=== PATIENT | female | born 1955 | race Two or more races ===

== ENCOUNTER 2024-12-01 19:22 | Inpatient (IN) | payer MEDICARE ==
[~2024-12-01] VITALS: Ht 147.3 cm; Wt 62.0 kg
--- NOTE | 2024-12-01 19:56 | ED.PDOC ---
General HPI Comments 69y F who presents to the ED for chief complaint of flank pain - pt states she was in [place] for the last four months and states yesterday, she went to the ED in [place] for evaluation of abdominal and R sided flank pain - pt states she has been having abdominal pain radiating to the R flank for the past 2 weeks, worse in the past 4x days, - pt states the pain is constant, rating the pain 10/10, with no noted exacerbating or relieving factors - pt states she was told she has a very large kidney stone in the R flank and would require surgery however the pt was otherwise discharged with antibiotics and pain medications because she said she can not afford being hospitalized in [place]. - pt states she has been having associated symptoms of UTI including dysuria - Pt otherwise has stable vitals including temp of 98.7 F, heart rate 67, rr 18 and BP of 124/61 and 02 sat of 97% on room air Past medical history: denies Past surgical history: c-sections medications: unknown allergies: denies social history: denies tobacco use, denies ETOH use, denies drug use HPI: Poor Historian. During my physical exam patient has absolutely no pain in the flank area or in the abdomen area. They said her pain is only at nighttime and then they said she had pain medications earlier she is in no acute distress. Patient is here because she could not afford staying in [place] for lithotripsy so she decided to come here today instead. She was prescribed pain medications and antibiotics she said. She said she has been taking it since yesterday. REVIEW OF SYSTEMS: CONSTITUTIONAL: Denies acute: fever, diaphoresis, chills, generalized weakness. HEAD: Denies acute: headache, photophobia Eyes: Denies acute: Double vision, vision loss, eye pain, eye discharge. EARS: Denies acute: tinnitus, hearing loss, ear discharge, ear pain, THROAT: Denies acute: sore throat, swelling, difficulty swallowing , pain with swallowing, change in voice. NECK: Denies acute: neck pain, neck swelling, stiff neck. HEART: Denies acute : chest pain, palpitations, LUNGS: Denies acute: SOB, wheezing, cough, hemoptysis ABDOMEN: Denies acute: Nausea, Vomiting, diarrhea, melena , hematemesis, hematochezia SKIN: Denies acute: rash, redness, lesions, itchiness. EXTREMITIES: Denies acute: calf pain, numbness, tingling, weakness, denies pain in extremity. Denies acute: Low back pain. Neuro: Denies acute: focal neurological deficit, motor or sensory focal neurological deficit, tremors, seizure like activity, confusion, dizziness, change in mental status, loss of bowel or bladder function, cauda equina like symptoms. : Denies acute: hematuria PSYCH: Denies acute: hallucination, suicidal ideation, homicidal ideation. FEMALE: Denies acute: abnormal vaginal bleeding, foul odor, unusual discharge. PHYSICAL EXAM: General: ---no-----acute distress, awake and alert. Head: normocephalic, atraumatic. Neck: supple, trachea is midline, no swelling. Throat: Normal phonation. Eyes:, no erythema, no purulent discharge, no proptosis, no icterus. Heart: regular rate, regular rhythm, no significant murmur appreciated. Lungs: no apparent respiratory distress, Able to speak in full sentences. No wheezing, no rhonchi, no crackles. No stridors Clear to auscultation bilaterally. Abdomen: non tender to palpation, non distended, soft, no guarding, no rebound, + bowel sounds. Neuro: Awake, Alert, oriented to name, self, situation, follows commands GCS=15. Speech is normal. Skin: no petechia, no purpura, no cyanosis, non-pale, not jaundice. Lower extremities: --no - Pitting edema no deformity, no focal swelling, no calf TTP. Makes eye contact. moves all four extremities. Face: no apparent facial droop. No CVA tenderness to percussion bilaterally. Ambulating in the ED independently. ED COURSE: DISCLAIMER: This medical document was created using an electronic medical record system with voice recognition software and computerized dictation system. Although this document has been carefully reviewed, there might still be some phonetic and typographical errors. Occasional wrong-word or "sound-alike" substitutions may have occurred due to the inherent limitations of voice recognition software. These areas are purely typographical due to imperfections of the software programs and do not reflect any compromise in the patient's medical care. Please read the chart carefully and recognize, using context, where these substitutions have occurred. Chief Complaint: Flank Pain Time Seen by MD: 19:47 Reviewed notes: Medications, Allergies Allergies: Coded Allergies: NO KNOWN ALLERGIES (Unverified , 12/01/24) Information Source: Patient Mode of Arrival: Ambulatory Was a procedure done? Was a procedure done?: No Differential Diagnosis Kidney stone (Female): Other (Flank Pain;DDX include Nephrolethiasis, obstructive uropathy, kidney cancer, renal infarct, intraabdominal neoplasm, lower lobe pneumonia, retroperitoneal hemorrhage, pancreatitis, aneurysm, dissection, musculoskeletal, rib contusion/trauma, hematoma, PYLONEPHRITIS, muscle strain, spinal disease. ) X-Ray, Labs, Meds, VS Vital Signs Date Time Temp Pulse Resp B/P (MAP) Pulse Ox O2 Delivery O2 Flow Rate FiO2 12/02/24 04:52 98.5 67 18 141/64 (89) 99 98.5 12/01/24 19:23 98.7 67 18 124/61 97 98.7 Lab Test 12/01/24 20:57 12/01/24 20:40 12/01/24 19:52 Range/Units Urine Color Colorless Yellow Urine Clarity Clear Clear Urine pH 5.5 5.0-9.0 Urine Specific [place] 1.006 1.001-1.035 Urine Protein Negative Negative Urine Ketones Negative Negative Urine Blood Negative Negative /uL Urine Nitrite Negative Negative Urine Bilirubin Negative Negative Urine Urobilinogen Normal Negative mg/dL Urine Leukocyte Esterase Trace Negative /uL Urine RBC None seen 0 - 4 /hpf Urine Microscopic WBC 2 0-5 /HPF Urine Squamous Epithelial Cells Few <5 /hpf Urine Bacteria None seen None Seen /hpf Urine Glucose Normal Normal mg/dL Troponin I High Sensitivity < 3 L < 3 L </=34 ng/L White Blood Count 8.5 4.4-10.8 10^3/uL Red Blood Count 4.33 4.0-5.20 10^6/uL Hemoglobin 13.5 12.2-16.2 g/dL Hematocrit 39.3 36.0-46.0 % Mean Corpuscular Volume 90.8 80.0-100.0 fL Mean Corpuscular Hemoglobin 31.3 28.0-32.0 pg Mean Corpuscular Hemoglobin Concent 34.4 32.0-36.0 g/dL Red Cell Distribution Width 13.2 11.8-14.3 % Platelet Count 240 140-450 10^3/uL Mean Platelet Volume 7.6 6.9-10.8 fL Neutrophils (%) (Auto) 63.6 37.0-80.0 % Lymphocytes (%) (Auto) 22.9 10.0-50.0 % Monocytes (%) (Auto) 10.6 0.0-12.0 % Eosinophils (%) (Auto) 2.7 0.0-7.0 % Basophils (%) (Auto) 0.2 0.0-2.0 % Neutrophils # (Auto) 5.4 1.6-8.6 10 ^3/uL Lymphocytes # (Auto) 1.9 0.4-5.4 10 ^3/uL Monocytes # (Auto) 0.9 0-1.3 10 ^3/uL Eosinophils # (Auto) 0.2 0-0.8 10 ^3/uL Basophils # (Auto) 0 0-0.2 10 ^3/uL Nucleated Red Blood Cells 0.1 % Sodium Level 141 136-145 mmol/L Potassium Level 4.2 3.5-5.1 mmol/L Chloride Level 106 98-107 mmol/L Carbon Dioxide Level 27 20-31 mmol/L Anion Gap 8 5-15 Blood Urea Nitrogen 15 9-23 mg/dL Creatinine 0.98 0.550-1.02 mg/dL Glomerular Filtration Rate Calc 62 >90 mL/min BUN/Creatinine Ratio 15.3 10.0-20.0 Serum Glucose 124 H 74-106 mg/dL Lactic Acid Level 1.3 0.4-2.0 mmol/L Calcium Level 9.0 8.7-10.4 mg/dL Total Bilirubin 0.6 0.2-1.0 mg/dL Aspartate Amino Transferase (AST) 26 13-40 U/L Alanine Aminotransferase (ALT) 24 7-40 U/L Alkaline Phosphatase 121 H 46-116 U/L Total Protein 7.3 5.7-8.2 g/dL Albumin 4.2 3.2-4.8 g/dL [facility] [id number] [facility] [address] Ph: [phone] DIAGNOSTIC IMAGING Diagnostic Imaging Report : [id number] Signed PATIENT: LEODAN MICHELLE SOCORROACCT: [id number] UNIT: [id number] : 1955 LOC: ER ROOM / BED: / AGE / SEX: 69 / F ADM STATUS: REG ER SERVICE 31 ORDERING PHYSICIAN: JUAN MESA DO PROCEDURE(s): ABPL - CT AB PEL WO CON-NO ORAL OR IV REASON: r flank pain, abd pain ORDER NUMBER(s): [id number], ACCESSION NUMBER(s): [id number] CLINICAL HISTORY: r flank pain, abd pain TECHNIQUE: CT of the abdomen and pelvis was performed without IV contrast. This exam was performed according to our departmental dose optimization program. Up-to-date CT equipment and radiation dose reduction techniques are utilized as appropriate. CTDI 5.7 DLP 310 COMPARISON: None FINDINGS: Abdomen/Pelvis: The spleen, pancreas, adrenal glands, gallbladder, and liver are grossly unremarkable. The uterus is absent. There is a 2 mm right UVJ calculus there is alting in severe right hyd roureteronephrosis. There is a 3 mm nonobstructing left renal calculus. A hypodense lesion within the left kidney is incompletely characterized due to lack of IV contrast. The abdominal aorta is normal in course and caliber. There are [id number] atherosclerotic calcifications. There is no free intraperitoneal air or fluid. There is no enlarged abdominal pelvic lymph node. There is no bowel wall thickening or dilatation. Other: The imaged lower thorax demonstrates mild left medial lower lobe scarring secondary to vertebral osteophytes. No acute osseous abnormality is evident. There is a mild chronic L2 vertebral body compression fracture. Impression: 2 mm right UVJ calculus results in severe right hydroureteronephrosis. Nonobstructing 3 mm left renal calculus. Historectomy. ATED BY: MARTIN ABERNATHY MD DICTATED DATE/TIME: 12/01/242037 SIGNED BY: MARTIN ABERNATHY MD SIGNED DATE/TIME: 12/01/242037 CC: Time of 1ST Reevaluation: 00:00 Reevaluation 1ST: Improved Patient Education/Counseling: Diagnosis, Treatment, Prognosis Family Education/Counseling: Diagnosis, Treatment, Prognosis Comments MDM: patient presented with the above HPI.---flank pain history of kidney stones/abdominal pain---workup was initiated. patient was found with the above mentioned diagnosis. the following medications were ordered: please refer to order lists of meds and tests obtained by myself Dr. Mesa. Patient ED course and VS have been stabilized. Patient has been reassessed in the ED and remained in a stable condition. Pertinent incidental findings were discussed with the patient and/or family. Patient/family voices understanding and is agreeable with plan. Patient has been observed in the ED adequate length of time to insure improvement/stability. Escalation of care considered: Consideration of escalation to observation or admission Patient was ADMITTED to the medicine team for further evaluation and treatment of their presentation. All the reports of any imaging studies that were ordered by myself were reviewed by myself. SEPSIS Sepsis Screen Date sepsis recognized/suspect: Dec 01, 2024 Time Sepsis recognized/suspect: 1922 Recent Procedure: No On Antibiotic Therapy: No Respiratory Rate >20: No Heart Rate >90: No Temp<36 C (96.8 F) or >38.3 C: No SBP <90 or MAP <65 mmHG: No New Acute Mental Status Change: No Is the patient on CPAP, BIPAP,: No Physician Orders Ct Ab Pel Wo Con-No Oral Or Iv (12/01/24 19:32) Project Management Consultant (12/01/24 ) Electrocardigram (12/01/24 19:40) Vital Signs Date Time Temp Pulse Resp B/P (MAP) Pulse Ox O2 Delivery O2 Flow Rate FiO2 12/02/24 04:52 98.5 67 18 141/64 (89) 99 98.5 12/01/24 19:23 98.7 67 18 124/61 97 98.7 Laboratory Tests Test 12/01/24 19:52 Lactic Acid Level 1.3 mmol/L (0.4-2.0) White Blood Count 8.5 10^3/uL (4.4-10.8) Departure 1 Departure Time of Disposition: 20:51 Impression: Primary Impression: Hydroureteronephrosis Additional Impression: Obstructive uropathy Disposition: ADMITTED INPATIENT Admit to: [facility] Condition: Guarded Discharged With: Self Critical Care Note Critical Care Time?: No I personally scribed for JUAN MESA DO ([email or web address]) on 12/01/24 at 19:56. Electr onically submitted by Enrrique Garrison ([email or web address]). I personally scribed for JUAN MESA DO ([email or web address]) on 12/01/24 at 20:44. El ectronically submitted by Enrrique Garrison ([email or web address]). JUAN MESA DO Dec 01, 2024 19:56
[2024-12-01 20:09] LABS: Hematocrit 39.3 % (36.0-46.0); Hemoglobin 13.5 g/dL (12.2-16.2); Mean Corpuscular Hemoglobin 31.3 pg (28.0-32.0); Mean Corpuscular Volume 90.8 fL (80.0-100.0); Nucleated Red Blood Cells % 0.1 %
[2024-12-01 20:21] LABS: Alanine Aminotransferase 24 U/L (7-40); Albumin 4.2 g/dL (3.2-4.8); Anion Gap 8 (5-15); BUN/Creatinine Ratio 15.3 (10.0-20.0); Blood Urea Nitrogen 15 mg/dL (9-23); Calcium 9.0 mg/dL (8.7-10.4); Carbon Dioxide 27 mmol/L (20-31); Chloride 106 mmol/L (98-107); Potassium 4.2 mmol/L (3.5-5.1); Sodium 141 mmol/L (136-145); Total Protein 7.3 g/dL (5.7-8.2)
[2024-12-01 20:22] LABS: Bilirubin, Total 0.6 mg/dL (0.2-1.0)
[2024-12-01 20:23] LABS: Alkaline Phosphatase 121 U/L (46-116); Glucose 124 mg/dL (74-106)
--- NOTE | 2024-12-01 20:40 | DVH ---
CLINICAL HISTORY: r flank pain, abd pain TECHNIQUE: CT of the abdomen and pelvis was performed without IV contrast. This exam was performed ac cording to our departmental dose optimization program. Up-to-date CT equipment and radiation dose red uction techniques are utilized as appropriate. CTDI 5.7 DLP 310 COMPARISON: None FINDINGS: Abdomen/Pelvis: The spleen, pancreas, adrenal glands, gallbladder, and liver are grossly unremarkable. The uterus is absent. There is a 2 mm right UVJ calculus there is alting in severe right hydroureteronephrosis. There is a 3 mm nonobstructing left renal calculus. A hypodense lesion within the left kidney is inco mpletely characterized due to lack of IV contrast. The abdominal aorta is normal in course and caliber. There are [id number] atherosclerotic calci fications. There is no free intraperitoneal air or fluid. There is no enlarged abdominal pelvic lymph node. There is no bowel wall thickening or dilatation. Other: The imaged lower thorax demonstrates mild left medial lower lobe scarring secondary to vertebral oste ophytes. No acute osseous abnormality is evident. There is a mild chronic L2 vertebral body compression fractu re. Impression: 2 mm right UVJ calculus results in severe right hydroureteronephrosis. Nonobstructing 3 mm left renal calculus. Historectomy.
[2024-12-02 03:02] LABS: Urine Protein, UAD Negative (Negative)
--- NOTE | 2024-12-02 08:35 | DVHHP2 ---
History of Present Illness Reason for Visit: Abdominal pain History of Present Illness Argentina Quiñones is a 69-year-old female with no significant past medical history who came to the hospital due to abdominal pain and right flank pain. Patient states she lives here and was visiting [facility] when her pain began. She went to the doctor there on Saturday night and was diagnosed with kidney stones. She was also told that she has hydronephrosis. She did not want to be treated there so she flew back home and came to the hospital. Patient states she is having a hard time urinating, having frequency, and burning with urination. Her pain is worse at night and she has associated nausea and vomiting. Past Surgical History: (x 3), Hysterectomy Smoke: No ALCOHOL: none Drugs: None Lives: with Family Domestic Violence: Neg Review of Systems Constitutional: No: Fever, Chills, Sweats, Weakness, Malaise, Other Eyes: No: Pain, Vision change, Conjunctivae inflammation, Eyelid inflammation, Other, Redness ENT: No: Ear pain, Ear discharge, Nose pain, Nose discharge, Nose congestion, Mouth pain, Mouth swelling, Throat pain, Throat swelling, Other Respiratory: No: Cough, Dry, Shortness of breath, SOB with excertion, Wheezing, Hemoptysis, Pleuritic Pain, Sputum, Wheezing, Other Cardiovascular: No: Chest Pain, Palpitations, Orthopnea, Paroxysmal Noc. Dyspnea, Edema, Lt Headedness, Other Gastrointestinal: Nausea, Vomiting, Abdominal Pain (RLQ/pelvic); No: Diarrhea, Constipation, Melena, Hematochezia, Other Genitourinary: Dysuria; No Frequency, No Incontinence, No Hematuria, No Retention, No Other Musculoskeletal: back pain (right flank); No: other, neck pain, shoulder pain, arm pain, hand pain, leg pain, foot pain Skin: No: Rash, Lesions, Jaundice, Bruising, Other Neurological: No: Weakness, Numbness, Incoordination, Change in speech, Confusion, Seizures, Other Allergies: Coded Allergies: NO KNOWN ALLERGIES (Unverified , 12/01/24) Exam Vital Signs Vital Signs Date Time Temp Pulse Resp B/P (MAP) Pulse Ox O2 Delivery O2 Flow Rate FiO2 12/02/24 04:52 98.5 67 18 141/64 (89) 99 98.5 General Appearance: Alert, Oriented X3, Cooperative, moderate distress HEENT: Atraumatic, PERRLA Respiratory: Clear to auscultation, Normal air movement Cardiovascular: Regular rate, Normal S1, Normal S2 Abdominal: Normal bowel sounds, Soft, No hepatospenomegaly, Other (RLQ/pelvic tenderness) Extremities: No clubbing, No cyanosis, No edema, Normal pulses, No tenderness/swelling Skin: No rashes, No breakdown, No significant lesion Neuro: Normal gait, Normal speech, Strength at 5/5 X4 ext, Normal tone, Sensation intact Psych/Mental Status: Mental status NL, Mood NL Labs/Xrays Labs Test 12/01/24 20:57 12/01/24 20:40 12/01/24 19:52 Range/Units Urine Color Colorless Yellow Urine Clarity Clear Clear Urine pH 5.5 5.0-9.0 Urine Specific [place] 1.006 1.001-1.035 Urine Protein Negative Negative Urine Ketones Negative Negative Urine Blood Negative Negative /uL Urine Nitrite Negative Negative Urine Bilirubin Negative Negative Urine Urobilinogen Normal Negative mg/dL Urine Leukocyte Esterase Trace Negative /uL Urine RBC None seen 0 - 4 /hpf Urine Microscopic WBC 2 0-5 /HPF Urine Squamous Epithelial Cells Few <5 /hpf Urine Bacteria None seen None Seen /hpf Urine Glucose Normal Normal mg/dL Troponin I High Sensitivity < 3 L </=34 ng/L White Blood Count 8.5 4.4-10.8 10^3/uL Red Blood Count 4.33 4.0-5.20 10^6/uL Hemoglobin 13.5 12.2-16.2 g/dL Hematocrit 39.3 36.0-46.0 % Mean Corpuscular Volume 90.8 80.0-100.0 fL Mean Corpuscular Hemoglobin 31.3 28.0-32.0 pg Mean Corpuscular Hemoglobin Concent 34.4 32.0-36.0 g/dL Red Cell Distribution Width 13.2 11.8-14.3 % Platelet Count 240 140-450 10^3/uL Mean Platelet Volume 7.6 6.9-10.8 fL Neutrophils (%) (Auto) 63.6 37.0-80.0 % Lymphocytes (%) (Auto) 22.9 10.0-50.0 % Monocytes (%) (Auto) 10.6 0.0-12.0 % Eosinophils (%) (Auto) 2.7 0.0-7.0 % Basophils (%) (Auto) 0.2 0.0-2.0 % Neutrophils # (Auto) 5.4 1.6-8.6 10 ^3/uL Lymphocytes # (Auto) 1.9 0.4-5.4 10 ^3/uL Monocytes # (Auto) 0.9 0-1.3 10 ^3/uL Eosinophils # (Auto) 0.2 0-0.8 10 ^3/uL Basophils # (Auto) 0 0-0.2 10 ^3/uL Nucleated Red Blood Cells 0.1 % Sodium Level 141 136-145 mmol/L Potassium Level 4.2 3.5-5.1 mmol/L Chloride Level 106 98-107 mmol/L Carbon Dioxide Level 27 20-31 mmol/L Anion Gap 8 5-15 Blood Urea Nitrogen 15 9-23 mg/dL Creatinine 0.98 0.550-1.02 mg/dL Glomerular Filtration Rate Calc 62 >90 mL/min BUN/Creatinine Ratio 15.3 10.0-20.0 Serum Glucose 124 H 74-106 mg/dL Lactic Acid Level 1.3 0.4-2.0 mmol/L Calcium Level 9.0 8.7-10.4 mg/dL Total Bilirubin 0.6 0.2-1.0 mg/dL Aspartate Amino Transferase (AST) 26 13-40 U/L Alanine Aminotransferase (ALT) 24 7-40 U/L Alkaline Phosphatase 121 H 46-116 U/L Total Protein 7.3 5.7-8.2 g/dL Albumin 4.2 3.2-4.8 g/dL TECHNIQUE: CT of the abdomen and pelvis was performed without IV contrast. FINDINGS: Abdomen/Pelvis: The spleen, pancreas, adrenal glands, gallbladder, and liver are grossly unremarkable. The uterus is absent. There is a 2 mm right UVJ calculus there is alting in severe right hydroureteronephrosis. There is a 3 mm nonobstructing left renal calculus. A hypodense lesion within th e left kidney is incompletely characterized due to lack of IV contrast. The abdominal aorta is normal in course and caliber. There are [id number] atherosclerotic calcifications. There is no free intraperitoneal air or fluid. There is no enlarged abdominal pelvic lymph node. There is no bowel wall thickening or dilatation. Other: The imaged lower thorax demonstrates mild left medial lower lobe scarring secondary to vertebral osteophytes. No acute osseous abnormality is evident. There is a mild chronic L2 vertebral body compression fracture. Impression: 2 mm right UVJ calculus results in severe right hydroureteronephrosis. Nonobstructing 3 mm left renal calculus. Histonectomy. SEPSIS Sepsis Screen Date sepsis recognized/suspect: Dec 01, 2024 Time Sepsis recognized/suspect: 1922 Recent Procedure: No On Antibiotic Therapy: No Respiratory Rate >20: No Heart Rate >90: No Temp<36 C (96.8 F) or >38.3 C: No SBP <90 or MAP <65 mmHG: No New Acute Mental Status Change: No Is the patient on CPAP, BIPAP,: No Physician Orders Admit (12/02/24 08:32) Code Status (12/02/24 08:32) 0.9% Ns 1000 Ml (12/02/24 08:45) Hydrocodone-Acet 5/325mg Tab ([place] (12/02/24 08:45) Ondansetron Hcl (Zofran) (12/02/24 08:45) Docusate Sodium Capsule (Colace Capsule) (12/02/24 08:45) Complete Blood Count (12/03/24 04:00) Comprehensive Metabolic Panel (12/03/24 04:00) Npo (Nothing By Mouth) Diet (12/02/24 Breakfast) Condition: Serious (12/02/24 08:32) Acetaminophen Tablet (Tylenol Tablet) (12/02/24 08:45) Vital Signs Date Time Temp Pulse Resp B/P (MAP) Pulse Ox O2 Delivery O2 Flow Rate FiO2 12/02/24 04:52 98.5 67 18 141/64 (89) 99 98.5 Assessment/Plan Assessment/Plan Assessment: Obstructive uropathy, Hydronephrosis, Renal calculi, Plan: Admit to Med-Surg, Urology consult, IR consult, IV hydration, IV antibiotics, Flomax, Strain all urine, Plan discussed with: Patient My Orders Orders - HARRISON GREEN [employer] Procedure Category Date Status Time Admit ADMIT 12/02/24 Transmitted 08:32 Code Status CODE 12/02/24 Transmitted 08:32 0.9% Ns 1000 Ml PHA 12/02/24 Transmitted 08:45 Hydrocodone-Acet PHA 12/02/24 Transmitted 5/325mg Tab ([place] 08:45 Ondansetron Hcl PHA 12/02/24 Transmitted (Zofran) 08:45 Docusate Sodium PHA 12/02/24 Transmitted Capsule (Colace 08:45 Complete Blood Count LAB 12/03/24 Verified 04:00 Comprehensive LAB 12/03/24 Verified Metabolic Panel 04:00 Npo (Nothing By DIET 12/02/24 Transmitted Mouth) Diet Breakfast Condition: Serious CRISSY 12/02/24 Transmitted 08:32 Acetaminophen Tablet PHA 12/02/24 Transmitted (Tylenol Tablet) 08:45 Date of Service: Dec 02, 2024 Billing Provider: HARRISON GREEN Common Visit Codes: [id number] INP/OBS CARE (MOD) HARRISON GREEN Dec 02, 2024 08:35
[2024-12-02] MEDS ORDERED: ONDANSETRON HCL 4 MG/2 ML VIAL IV PRN (08:45)
[2024-12-02] MEDS ORDERED: ACETAMINOPHEN 325 MG TAB PO PRN (08:45)
[2024-12-02] MEDS ORDERED: DOCUSATE SOD 100 MG CAP PO PRN (08:45)
[2024-12-02] MEDS: SODIUM CHLORIDE 0.9% 1,000 ML IV SCH (08:45)
[2024-12-02] MEDS: TAMSULOSIN HYDROCHLORIDE 0.4 MG CAP PO ONE (09:03)
[2024-12-02 09:27] VITALS: PULSE 84; RESP 20; O2SAT 98
[2024-12-02] MEDS ORDERED: KETOROLAC TROMETH 30 MG/ML 1ML VIAL IV PRN (09:45)
[2024-12-02] MEDS: SODIUM CHLORIDE 0.9% 1,000 ML IV ONE ×2 (09:45)
--- NOTE | 2024-12-02 11:30 | DVHINCON2 ---
Date of service: Dec 02, 2024 Referring Physician Hospitalist Reason for Consultation Urolithiasis Right hydronephrosis with 4 mm distal ureteral stone Left renal stone, 4 mm History of Present Illness 69-year-old female with no significant past medical history who came to the hospital due to abdominal pain and right flank pain. Patient states she lives here and was visiting [facility] when her pain began. She went to the doctor there on Saturday night and was diagnosed with kidney stones. She was also told that she has hydronephrosis. She did not want to be treated there so she flew back home and came to the hospital. Patient states she is having a hard time urinating, having frequency, and burning with urination. Her pain is worse at night and she has associated nausea and vomiting. Past Medical History nephrolithiasis Past Surgical History (x 3), Hysterectomy Allergies: Coded Allergies: NO KNOWN ALLERGIES (Unverified , 12/01/24) Current Medications Current Medications Medications (Trade) Dose Ordered Sig/Fabiola Route PRN Reason Start Time Stop Time Status Last Admin Sodium Chloride 1,000 ml @ 100 mls/hr Q10H IV 12/02/24 08:45 12/02/24 08:45 Acetaminophen/ Hydrocodone Bitart (Neptune 5/325MG Tab) 1 tab Q4HP PRN PO MODERATE PAIN (4-6 PAIN SCALE) 12/02/24 08:45 Ondansetron HCl (Zofran) 4 mg Q4HP PRN IV NAUSEA / VOMITING 12/02/24 08:45 Docusate Sodium (Colace Capsule) 100 mg BIDPRN PRN PO FOR CONSTIPATION 12/02/24 08:45 Acetaminophen (Tylenol Tablet) 650 mg Q6HP PRN PO PAIN SCALE 1-3 OR TEMP>100.4 12/02/24 08:45 Tamsulosin HCl (Flomax) 0.4 mg QPM PO 12/02/24 18:00 Ketorolac Tromethamine (Toradol Injection) 15 mg Q6HPRN PRN IV SEVERE PAIN (7-10 PAIN SCALE) 12/02/24 09:45 12/07/24 09:44 Ceftriaxone Sodium 50 ml @ 100 mls/hr DAILY@09 IV 12/03/24 09:00 Review of Systems Constitutional: No: Fever, Chills, Sweats, Weakness, Malaise, Other Eyes: No: Pain, Vision change, Conjunctivae inflammation, Eyelid inflammation, Other, Redness ENT: No: Ear pain, Ear discharge, Nose pain, Nose discharge, Nose congestion, Mouth pain, Mouth swelling, Throat pain, Throat swelling, Other Respiratory: No: Cough, Dry, Shortness of breath, SOB with excertion, Wheezing, Hemoptysis, Pleuritic Pain, Sputum, Wheezing, Other Cardiovascular: No: Chest Pain, Palpitations, Orthopnea, Paroxysmal Noc. Dyspnea, Edema, Lt Headedness, Other Gastrointestinal: Nausea, Vomiting, Abdominal Pain (RLQ/pelvic); No: Diarrhea, Constipation, Melena, Hematochezia, Other Genitourinary: Dysuria; No Frequency, No Incontinence, No Hematuria, No Retention, No Other Musculoskeletal: back pain (right flank); No: other, neck pain, shoulder pain, arm pain, hand pain, leg pain, foot pain Skin: No: Rash, Lesions, Jaundice, Bruising, Other Neurological: No: Weakness, Numbness, Incoordination, Change in speech, Confusion, Seizures, Other Allergies: Coded Allergies: NO KNOWN ALLERGIES (Unverified , 12/01/24) Vital Signs Vital Signs Date Time Temp Pulse Resp B/P (MAP) Pulse Ox O2 Delivery O2 Flow Rate FiO2 12/02/24 09:27 84 20 98 Room Air* 0 21 12/02/24 09:26 111/59 (76) 12/02/24 04:52 98.5 98.5 Physical Exam Vital Signs Date Time Temp Pulse Resp B/P (MAP) Pulse Ox O2 Delivery O2 Flow Rate FiO2 12/02/24 04:52 98.5 67 18 141/64 (89) 99 98.5 General Appearance: Alert, Oriented X3, Cooperative, moderate distress HEENT: Atraumatic, PERRLA Respiratory: Clear to auscultation, Normal air movement Cardiovascular: Regular rate, Normal S1, Normal S2 Abdominal: Normal bowel sounds, Soft, No hepatospenomegaly, Other (RLQ/pelvic tenderness) Extremities: No clubbing, No cyanosis, No edema, Normal pulses, No tenderness/swelling Skin: No rashes, No breakdown, No significant lesion Neuro: Normal gait, Normal speech, Strength at 5/5 X4 ext, Normal tone, Sensation intact Psych/Mental Status: Mental status NL, Mood NL Labs/Diagnostic Data Labs Test 12/01/24 20:57 12/01/24 20:40 12/01/24 19:52 Range/Units Urine Color Colorless Yellow Urine Clarity Clear Clear Urine pH 5.5 5.0-9.0 Urine Specific [place] 1.006 1.001-1.035 Urine Protein Negative Negative Urine Ketones Negative Negative Urine Blood Negative Negative /uL Urine Nitrite Negative Negative Urine Bilirubin Negative Negative Urine Urobilinogen Normal Negative mg/dL Urine Leukocyte Esterase Trace Negative /uL Urine RBC None seen 0 - 4 /hpf Urine Microscopic WBC 2 0-5 /HPF Urine Squamous Epithelial Cells Few <5 /hpf Urine Bacteria None seen None Seen /hpf Urine Glucose Normal Normal mg/dL Troponin I High Sensitivity < 3 L </=34 ng/L White Blood Count 8.5 4.4-10.8 10^3/uL Red Blood Count 4.33 4.0-5.20 10^6/uL Hemoglobin 13.5 12.2-16.2 g/dL Hematocrit 39.3 36.0-46.0 % Mean Corpuscular Volume 90.8 80.0-100.0 fL Mean Corpuscular Hemoglobin 31.3 28.0-32.0 pg Mean Corpuscular Hemoglobin Concent 34.4 32.0-36.0 g/dL Red Cell Distribution Width 13.2 11.8-14.3 % Platelet Count 240 140-450 10^3/uL Mean Platelet Volume 7.6 6.9-10.8 fL Neutrophils (%) (Auto) 63.6 37.0-80.0 % Lymphocytes (%) (Auto) 22.9 10.0-50.0 % Monocytes (%) (Auto) 10.6 0.0-12.0 % Eosinophils (%) (Auto) 2.7 0.0-7.0 % Basophils (%) (Auto) 0.2 0.0-2.0 % Neutrophils # (Auto) 5.4 1.6-8.6 10 ^3/uL Lymphocytes # (Auto) 1.9 0.4-5.4 10 ^3/uL Monocytes # (Auto) 0.9 0-1.3 10 ^3/uL Eosinophils # (Auto) 0.2 0-0.8 10 ^3/uL Basophils # (Auto) 0 0-0.2 10 ^3/uL Nucleated Red Blood Cells 0.1 % Sodium Level 141 136-145 mmol/L Potassium Level 4.2 3.5-5.1 mmol/L Chloride Level 106 98-107 mmol/L Carbon Dioxide Level 27 20-31 mmol/L Anion Gap 8 5-15 Blood Urea Nitrogen 15 9-23 mg/dL Creatinine 0.98 0.550-1.02 mg/dL Glomerular Filtration Rate Calc 62 >90 mL/min BUN/Creatinine Ratio 15.3 10.0-20.0 Serum Glucose 124 H 74-106 mg/dL Lactic Acid Level 1.3 0.4-2.0 mmol/L Calcium Level 9.0 8.7-10.4 mg/dL Total Bilirubin 0.6 0.2-1.0 mg/dL Aspartate Amino Transferase (AST) 26 13-40 U/L Alanine Aminotransferase (ALT) 24 7-40 U/L Alkaline Phosphatase 121 H 46-116 U/L Total Protein 7.3 5.7-8.2 g/dL Albumin 4.2 3.2-4.8 g/dL Assessment Right hydronephrosis 4 mm right distal ureteral calculus 4 mm left renal calculus Plan/Recommendation NPO after midnight Cystoscopy with right ureteral stent placement and right extracorporeal shockwave lithotripsy of distal ureteral stone, possible left renal shockwave lithotripsy Plan discussed with: Patient, Other SARA CHAVEZ MD Dec 02, 2024 11:30
[2024-12-02] MEDS: TAMSULOSIN HYDROCHLORIDE 0.4 MG CAP PO SCH (18:33)
[2024-12-02] MEDS: HYDROcodone-ACET 5/325MG TAB PO PRN (19:03)
[2024-12-02 19:30] VITALS: RESP 17; O2SAT 99
[2024-12-03] VITALS (10 sets, daily range): BP systolic 112–137; BP diastolic 53–84; PULSE 57–84; RESP 12–18; TEMP 97.3–98.3; O2SAT 96–100
--- NOTE | 2024-12-03 07:00 | DVH ---
CHEST RADIOGRAPH Indication: PRE-OP EVAL Technique: Single frontal view of the chest was obtained COMPARISON: None FINDINGS: Lines and Tubes: None Lungs: Clear Pleura: No effusion. No pneumothorax. Cardiomediastinal contours: Unremarkable Bones: Unremarkable IMPRESSION: 1. No acute disease.
[2024-12-03 07:52] LABS: Hematocrit 34.4 % (36.0-46.0); Hemoglobin 11.9 g/dL (12.2-16.2); Mean Corpuscular Hemoglobin 31.4 pg (28.0-32.0); Mean Corpuscular Volume 90.9 fL (80.0-100.0); Nucleated Red Blood Cells % 0.1 %
[2024-12-03 07:53] LABS: INR 1.0 (0.9-1.15); Partial Thromboplastin Time 24.5 SEC (24.5-34.5); Prothrombin Time 10.6 sec (9.3-11.8)
[2024-12-03 08:06] LABS: Alanine Aminotransferase 19 U/L (7-40); Albumin 3.3 g/dL (3.2-4.8); Alkaline Phosphatase 91 U/L (46-116); Anion Gap 9 (5-15); BUN/Creatinine Ratio 27.9 (10.0-20.0); Blood Urea Nitrogen 19 mg/dL (9-23); Carbon Dioxide 23 mmol/L (20-31); Glucose 96 mg/dL (74-106); Potassium 4.1 mmol/L (3.5-5.1); Sodium 144 mmol/L (136-145); Total Protein 5.9 g/dL (5.7-8.2)
[2024-12-03 08:07] LABS: Bilirubin, Total 0.4 mg/dL (0.2-1.0)
[2024-12-03 08:10] LABS: Calcium 8.1 mg/dL (8.7-10.4); Chloride 112 mmol/L (98-107)
--- NOTE | 2024-12-03 08:28 | DVHPN2 ---
Subjective Patient continues to report intermittent flank pain Reviewed: Care Plan, H&P, Labs, Medications Changes from previous H/P or p: No Changes General: Per HPI Eyes: No Pain, No Vision change, No Conjunctivae inflammation, No Eyelid inflammation, No Other, No Redness ENT: No Ear pain, No Ear discharge, No Nose pain, No Nose discharge, No Nose congestion, No Mouth pain, No Mouth swelling, No Throat pain, No Throat swelling, No Other Cardiovascular: No Chest Pain, No Palpitations, No Orthopnea, No Paroxysmal Noc. Dyspnea, No Edema, No Lt Headedness, No Other Respiratory: No Cough, No Dry, No Shortness of breath, No SOB with excertion, No Wheezing, No Hemoptysis, No Pleuritic Pain, No Sputum, No Other Gastrointestinal: Nausea, Vomiting, Abdominal Pain (RLQ/pelvic); No Diarrhea, No Constipation, No Melena, No Hematochezia, No Other Genitourinary: Dysuria; No Frequency, No Incontinence, No Hematuria, No Retention, No Other Musculoskeletal: No other, No neck pain, No shoulder pain, No arm pain; back pain (right flank); No hand pain, No leg pain, No foot pain Skin: No Rash, No Lesions, No Jaundice, No Bruising, No Other Objective Vitals Vital Signs Date Time Temp Pulse Resp B/P (MAP) Pulse Ox O2 Delivery O2 Flow Rate FiO2 12/03/24 05:00 98.3 57 16 119/53 (75) 97 98.3 12/02/24 19:30 Room Air* 0 21 Intake/Output Intake and Output 12/03/24 07:00 Intake Total 1050 ml Balance 1050 ml Intake Oral 0 ml IV Total 1050 ml # Voids 2 General Appearance: Alert, Oriented X3, Cooperative, mild distress HEENT: Atraumatic, PERRLA Lungs: Clear to auscultation, Normal air movement Cardiovascular: Normal S1, Normal S2 Genitourinary: No Apparent Abnormalities Musculoskeletal: Normal motor function Skin: Dry, Intact Psych/Mental Status: Mental status NL, Mood NL Medications Current Medications Medications Dose Ordered Sig/Fabiola Route Start Time Stop Time Status Last Admin Dose Admin Sodium Chloride 1,000 ml @ 100 mls/hr Q10H IV 12/02/24 08:45 12/03/24 07:10 100 MLS/HR Acetaminophen/ Hydrocodone Bitart 1 tab Q4HP PRN PO 12/02/24 08:45 Ondansetron HCl 4 mg Q4HP PRN IV 12/02/24 08:45 Docusate Sodium 100 mg BIDPRN PRN PO 12/02/24 08:45 Acetaminophen 650 mg Q6HP PRN PO 12/02/24 08:45 Tamsulosin HCl 0.4 mg QPM PO 12/02/24 18:00 12/02/24 18:33 0.4 MG Ketorolac Tromethamine 15 mg Q6HPRN PRN IV 12/02/24 09:45 12/07/24 09:44 Ceftriaxone Sodium 50 ml @ 100 mls/hr DAILY@ IV 12/03/24 09:00 Laboratory Results Laboratory Tests 12/03/24 07:26 Chemistry Test 12/03/24 07:26 Albumin 3.3 g/dL (3.2-4.8) Calcium Level 8.1 mg/dL (8.7-10.4) L Total Protein 5.9 g/dL (5.7-8.2) Coagulation Test 12/03/24 07:26 Prothrombin Time 10.6 sec (9.3-11.8) Prothrombin Time INR 1.00 (0.9-1.15) Activated Partial Thromboplast Time 24.5 SEC (24.5-34.5) LFT Test 12/03/24 07:26 Alanine Aminotransferase (ALT) 19 U/L (7-40) Alkaline Phosphatase 91 U/L (46-116) Aspartate Amino Transferase (AST) 21 U/L (13-40) Total Bilirubin 0.4 mg/dL (0.2-1.0) Urinalysis Test 12/01/24 20:57 Urine Color Colorless (Yellow) Urine Clarity Clear (Clear) Urine pH 5.5 (5.0-9.0) Urine Specific [place] 1.006 (1.001-1.035) Urine Protein Negative (Negative) Urine Ketones Negative (Negative) Urine Blood Negative /uL (Negative) Urine Nitrite Negative (Negative) Urine Bilirubin Negative (Negative) Urine Urobilinogen Normal mg/dL (Negative) Urine Leukocyte Esterase Trace /uL (Negative) Urine RBC None seen /hpf (0 - 4) Urine Microscopic WBC 2 /HPF (0-5) Urine Squamous Epithelial Cells Few /hpf (<5) Urine Bacteria None seen /hpf (None Seen) Urine Glucose Normal mg/dL (Normal) Labs and/or images reviewed: Labs reviewed by me, Image(s) reviewed by me Assessment/Plan Assessment/Plan Impression: -obstructive uropathy -nephrolithiasis Plan: -Neurology consultation: Plans for ESWL today -continue IV antibiotic therapy -IV hydration -pain management Total time spent with patient discussing and formulating plan of care: 35 minutes. This medical document was created using an electronic medical record system with [employer] dictation system. Although this document has been carefully reviewed, there may still be some phonetic and typographical errors. These areas are purely typographical due to imperfections of the software programs, and do not reflect any compromise in the patient's medical care. Plan discussed with: Patient, Other (RN) My Orders Orders - TANIKA BANG NP Procedure Category Date Status Time NS PHA 12/03/24 Verified 08:30 Date of Service: Dec 03, 2024 Billing Provider: TANIKA BANG NP Common Visit Codes: [id number] INP/OBS CARE(HIGH) TANIKA BANG NP Dec 03, 2024 08:28
[2024-12-03] MEDS: SODIUM CHLORIDE 0.9% 1,000 ML IV SCH (08:30)
[2024-12-03] MEDS ORDERED: ONDANSETRON HCL 4 MG/2 ML VIAL ONE (11:03)
[2024-12-03] MEDS ORDERED: PROPOFOL 10 MG/ML 20 ML IV ONE (11:04)
[2024-12-03] MEDS ORDERED: GLYCOPYRROLATE 0.2 MG/ML 1ML VIAL ONE (11:04)
[2024-12-03] MEDS ORDERED: KETOROLAC TROMETH 30 MG/ML 1ML VIAL ONE (11:04)
[2024-12-03] MEDS ORDERED: LIDOCAINE 2% (LOCAL ANESTH.) PF 5ml SDV ONE (11:04)
[2024-12-03] MEDS: ceFAZolin 2 GM/D5W50ml 50 ML IV ONE (11:48)
[2024-12-03] MEDS: CIPROFLOXACIN 400MG/200ML 200 ML IV ONE (11:55)
[2024-12-03] MEDS ORDERED: fentaNYL CITRATE 100 MCG/2 ML VL ONE (12:44)
--- NOTE | 2024-12-03 12:57 | DVHNC2 ---
Procedure - OPERATIVE REPORT Pre-op. Diagnosis: Ureteral Stone - RIGHT Hydronephrosis - RIGHT Flank Pain - RIGHT Left nephrolithiasis Post-op. Diagnosis: Same as pre-op diagnosis Operation: Extracorporeal Shockwave Lithotripsy - RIGHT Cystoscopy, Ureteral stent placement - RIGHT extracorporeal shockwave lithotripsy - left Anesthesia: General Indications: The patient is admitted to [facility] with findings of severe r ight hydronephrosis due to a 5 mm distal UVJ stone. She also has an asymptomatic left renal calculus measuring 6 mm and located in the upper pole Informed Consent: Options were discussed. Treatments can include conservative therapy, Extra-corporeal shockwave therapy (ESWL), Ureteroscopy with laser lithotripsy vs extraction, PCNL (percutaneous nephrolithotomy); with or without the use of Stents or retrograde pyelography. Corresponding advantages and disadvantages were also discussed. Questions were addressed. Patient wishes to proceed with right ESWL and cystoscopy with right ureteral stent placement. Risks and benefits of the surgery were reviewed with patient which include but are not limited to infection, bleeding, urosepsis, renal hemorrhage/hematoma for mation, ureteral perforation, ureteral stricture formation and need for further surgery if stone does not break, ureteral obstruction from stone fragments, cardiac arrthymia and risks of anesthesia. Despite these risks, patient wishes to proceed with the surgery. Details of Procedure: Under satisfactory anesthesia, the patient was positioned on the lithotripsy table. patient was placed in dorsal lithotomy position with the area of the genitalia prepped and draped in usual sterile manner. Twenty-one Greek rigid cystoscope was used to inspect the urethra in the bladder. The right ureteral orifice was edematous and obstructing. The left ureteric orifice was normal appearing. six Greek open-ended catheter was inserted to the right ureteric orifice and retrograde pyelogram was performed demonstrating a severe hydro nephroureteral versus. A guidewire was then placed an open-ended catheter was exchanged with a six Greek by 24 cm polaris loop ureteral stent. Cabrera catheter was inserted into the bladder. Using fluoroscopy the Right distal ureteral stone was localized. 1500 shock waves were delivered for fragmentation. Next patient was repositioned to treat her left upper pole 6 mm renal calculus. The stone was placed onto the F2 focus and shock waves were delivered to 2400 count. Stone fragmentation was confirmed. Patient was awakened and taken to recovery room in stable condition Specimens: None Complications: None Findings: Stone Laterality: Right Stone Location: Shocks Delivered: Max Power setting: Fragmentation Quality: Well Ureteral stent size & length: [id number] right ureteral stent Notes: Stent removal in 4-6 weeks F/U in 2 weeks SARA CHAVEZ MD Dec 03, 2024 12:57
[2024-12-03] MEDS ORDERED: FLUMAZENIL 0.1 MG/ML INJ 10ML MDV IV PRN (14:00)
[2024-12-03] MEDS ORDERED: HYDROmorphone HCL 2 MG/ML VL/or syr IV PRN (14:00)
[2024-12-03] MEDS ORDERED: hydrALAZINE HCL 20 MG/ML VL IV PRN (14:00)
[2024-12-03] MEDS ORDERED: fentaNYL CITRATE 100 MCG/2 ML VL IV PRN (14:00)
[2024-12-03] MEDS ORDERED: ONDANSETRON HCL 4 MG/2 ML VIAL IV PRN (14:00)
[2024-12-03] MEDS ORDERED: NALOXONE HCL 0.4 MG/ML VIAL IV PRN (14:00)
[2024-12-03] MEDS ORDERED: PNEUMOCOCCAL VACC POLYS 25 MCG/0.5 ML VIAL IM ONE (16:15)
--- NOTE | 2024-12-03 16:46 | DVH ---
Date: 12/03/2024 03:55 PM Examination: XY KUB ABDOMEN SINGLE VIEW History: stent placement Comparison: None TECHNIQUE: Frontal views of the abdomen was obtained. FINDINGS: Bowel gas pattern is unremarkable. Right-sided double-J ureteral stent in place The lung bases are unremarkable. No acute osseous abnormality identified. IMPRESSION: 1. Nonobstructive bowel gas pattern. 2. Right-sided double-J ureteral stent in place.
[2024-12-04 01:00] VITALS: BP 119/65; PULSE 83; RESP 16; TEMP 98.7; O2SAT 96
[2024-12-04 05:00] VITALS: BP 130/64; PULSE 76; RESP 16; TEMP 98.3; O2SAT 95
[2024-12-04 09:00] VITALS: BP 128/86; PULSE 84; RESP 20; TEMP 98.8; O2SAT 96
[2024-12-04 13:00] VITALS: BP 111/61; PULSE 81; RESP 18; TEMP 98.5; O2SAT 96
[2024-12-04] MEDS ORDERED: KETAMINE 50mg/ML 1ml syringe IV ONE (13:01)
--- NOTE | 2024-12-04 13:41 | DVHDS2 ---
Discharge Summary Date of Admission Dec 02, 2024 at 08:32 Date of Discharge: Dec 04, 2024 Admitting Diagnosis Obstructive uropathy Labs/Diagnostic Data: Laboratory Results Test 12/03/24 07:26 12/01/24 20:57 12/01/24 20:40 12/01/24 19:52 White Blood Count 5.4 10^3/uL (4.4-10.8) Red Blood Count 3.78 10^6/uL (4.0-5.20) Hemoglobin 11.9 g/dL (12.2-16.2) Hematocrit 34.4 % (36.0-46.0) Mean Corpuscular Volume 90.9 fL (80.0-100.0) Mean Corpuscular Hemoglobin 31.4 pg (28.0-32.0) Mean Corpuscular Hemoglobin Concent 34.5 g/dL (32.0-36.0) Red Cell Distribution Width 13.1 % (11.8-14.3) Platelet Count 195 10^3/uL (140-450) Mean Platelet Volume 7.8 fL (6.9-10.8) Neutrophils (%) (Auto) 51.3 % (37.0-80.0) Lymphocytes (%) (Auto) 33.7 % (10.0-50.0) Monocytes (%) (Auto) 10.3 % (0.0-12.0) Eosinophils (%) (Auto) 4.3 % (0.0-7.0) Basophils (%) (Auto) 0.4 % (0.0-2.0) Neutrophils # (Auto) 2.8 10 ^3/uL (1.6-8.6) Lymphocytes # (Auto) 1.8 10 ^3/uL (0.4-5.4) Monocytes # (Auto) 0.6 10 ^3/uL (0-1.3) Eosinophils # (Auto) 0.2 10 ^3/uL (0-0.8) Basophils # (Auto) 0 10 ^3/uL (0-0.2) Nucleated Red Blood Cells 0.1 % Prothrombin Time 10.6 sec (9.3-11.8) Prothrombin Time INR 1.00 (0.9-1.15) Activated Partial Thromboplast Time 24.5 SEC (24.5-34.5) Sodium Level 144 mmol/L (136-145) Potassium Level 4.1 mmol/L (3.5-5.1) Chloride Level 112 mmol/L (98-107) Carbon Dioxide Level 23 mmol/L (20-31) Anion Gap 9 (5-15) Blood Urea Nitrogen 19 mg/dL (9-23) Creatinine 0.68 mg/dL (0.550-1.02) Glomerular Filtration Rate Calc 93 mL/min (>90) BUN/Creatinine Ratio 27.9 (10.0-20.0) Serum Glucose 96 mg/dL (74-106) Calcium Level 8.1 mg/dL (8.7-10.4) Total Bilirubin 0.4 mg/dL (0.2-1.0) Aspartate Amino Transferase (AST) 21 U/L (13-40) Alanine Aminotransferase (ALT) 19 U/L (7-40) Alkaline Phosphatase 91 U/L (46-116) Total Protein 5.9 g/dL (5.7-8.2) Albumin 3.3 g/dL (3.2-4.8) Urine Color Colorless (Yellow) Urine Clarity Clear (Clear) Urine pH 5.5 (5.0-9.0) Urine Specific [place] 1.006 (1.001-1.035) Urine Protein Negative (Negative) Urine Ketones Negative (Negative) Urine Blood Negative /uL (Negative) Urine Nitrite Negative (Negative) Urine Bilirubin Negative (Negative) Urine Urobilinogen Normal mg/dL (Negative) Urine Leukocyte Esterase Trace /uL (Negative) Urine RBC None seen /hpf (0 - 4) Urine Microscopic WBC 2 /HPF (0-5) Urine Squamous Epithelial Cells Few /hpf (<5) Urine Bacteria None seen /hpf (None Seen) Urine Glucose Normal mg/dL (Normal) Troponin I High Sensitivity < 3 ng/L (</=34) Lactic Acid Level 1.3 mmol/L (0.4-2.0) Other Laboratory Tests 12/03/24 07:26 Brief Hx & Hospital Course: History of Present Illness Argentina Quiñones is a 69-year-old female with no significant past medical history who came to the hospital due to abdominal pain and right flank pain. Patient states she lives here and was visiting [facility] when her pain began. She went to the doctor there on Saturday night and was diagnosed with kidney stones. She was also told that she has hydronephrosis. She did not want to be treated there so she flew back home and came to the hospital. Patient states she is having a hard time urinating, having frequency, and burning with urination. Her pain is worse at night and she has associated nausea and vomiting. Course of hospitalization: Patient was started on IV Rocephin, IV hydration. Urology consultation was placed. Patient underwent ESWL and left ureter stent placement. Patient will have Cabrera catheter removed, and be discharged today. She will take [id number] Tylenol for pain. She is instructed to follow up with her PCP, Dr. Chappell within one week, as well as following up with Dr. Andersen in two weeks. Patient was agreeable with discharge plan. All questions answered. Physical examination General: Alert and Oriented x3. No acute distress. Well-nourished. Eyes: EOMI. Anicteric. HENT: Moist mucous membranes. Lungs: Clear to auscultation bilaterally. No accessory muscle use. Cardiovascular: Regular rate and rhythm. No murmur. No JVD. Abdomen: Soft, non-tender and non-distended. No palpable masses. Extremities: No edema. Non-tender. Skin: No rashes or lesions. Warm. Neurologic: No focal neurological deficits. CN II-XII grossly intact, but not individually tested. Psychiatric: Cooperative. Appropriate mood and affect. Total time spent with patient discussing and formulating plan of care: 35 minutes. This medical document was created using an electronic medical record system with [employer] dictation system. Although this document has been carefully reviewed, there may still be some phonetic and typographical errors. These areas are purely typographical due to imperfections of the software programs, and do not reflect any compromise in the patient's medical care. Condition at Discharge: Fair Final Diagnosis/Problems List Obstructive uropathy Nephrolithiasis Left hydroureter nephrosis Discharge Disposition: Home Discharge Instruct/Medications Diet: Regular Activity: No Restrictions, As Tolerated Follow Up/Referral: Follow up with PCP Dr. Chappell in 1-2 weeks Follow up with Urology in two weeks Medications: Continue all home medications [id number] Tylenol for pain Unable to Obtain Active Prescriptions or Reported Meds 36 Discharge Statement: "Patient was advised to return to the ER or call 911 if any headaches, dizziness, shortness of breath, chest pain, abdominal pain, bleeding, fevers, or worsening of medical condition. Patient was counseled about treatment plan, medications, possible side effects, patientverbalized understanding. All questions were answered to the best of my ability. This discharge took greater then 30 minutes in planning, reviewing documentation, counseling the patient, and discussing with other team members." ASSESSMENT ASSESSMENT Assessment Obstructive uropathy Date of Service: Dec 04, 2024 Billing Provider: TANIKA BANG NP Common Visit Codes: 11765-YHE/OBS DISCH DAY >30min TANIKA BANG NP Dec 04, 2024 13:41
[2024-12-04 13:48] VITALS: BP 111/61; PULSE 81; RESP 18; TEMP 98.5; O2SAT 96
--- NOTE | 2024-12-08 15:56 | ECG ---
[facility] Test Date: 2024-12-03 Test Time: 12:01:44 Pat Name: LEODAN MICHELLE Department: Room: 0279 A Gender: F Validation Consultant: KUMAR : [id number] Requested By: SARA CHAVEZ Order Number: [id number] Reading MD: Tomi Gage Measurements Intervals [place] Rate: 57 P: 20 SC: 136 QRS: -42 QRSD: 122 T: 5 QT: 474 QTc: 461 Interpretive Statements Sinus bradycardia Left axis deviation Right bundle branch block Electronically Signed On 12-08-2024 16:40:57 PDT by Tomi Gage Please click the below link to view image of tracing.
== END 2024-12-04 16:18 | disposition home or self-care (01) | DRG 661 ==
LOC: ER 19:22 → OVERFLOW 12-02 08:32 → WEST WING 12-03 15:11
PROVIDERS: ADMIT Nurse Practitioner Acute Care; ATTEND Nurse Practitioner Acute Care
PROC: 0TF3XZZ Fragmentation in Right Kidney Pelvis, External Approach (ICD-10-PCS; 2024-12-03)
PROC: 0TF6XZZ Fragmentation in Right Ureter, External Approach (ICD-10-PCS; 2024-12-03)
PROC: 0T768DZ Dilation of Right Ureter with Intraluminal Device, Via Natural or Artificial Opening Endoscopic (ICD-10-PCS; principal; 2024-12-03 12:11)
PROC: BT1D1ZZ Fluoroscopy of Right Kidney, Ureter and Bladder using Low Osmolar Contrast (ICD-10-PCS; 2024-12-03 12:11)
DX: N13.2 Hydronephrosis with renal and ureteral calculous obstruction (principal); Z90.710 Acquired absence of both cervix and uterus; Z79.899 Other long term (current) drug therapy
CPT/HCPCS: 36415; 71045; 74018; 74176; 80053; 81001; 83605; 84484; 85025; 85610; 85730; 93005; A4344; G0378; J1100; J1885; J2003; J2405; J2704

== ENCOUNTER 2024-12-08 12:30 | Outpatient (CLI) | payer MEDICARE | END 2024-12-08 17:00 | disposition home or self-care (01) | LOC: LAB 12:30 | PROVIDERS: ATTEND Internal Medicine | DX: N20.0 Calculus of kidney (principal); R30.0 Dysuria | CPT/HCPCS: 87086 ==

== ENCOUNTER → 2025-01-06 | Outpatient (CLI) | payer MEDICARE | END | disposition home or self-care (01) | LOC: LAB 01-05 09:23 | PROVIDERS: ATTEND Urology | DX: Z01.812 Encounter for preprocedural laboratory examination (principal); N20.0 Calculus of kidney | CPT/HCPCS: 82360 ==

== ENCOUNTER 2025-02-25 09:39 | Outpatient (CLI) | payer MEDICAID ==
[2025-02-25 10:52] LABS: Hematocrit 40.1 % (36.0-46.0); Hemoglobin 13.7 g/dL (12.2-16.2); Mean Corpuscular Hemoglobin 30.8 pg (28.0-32.0); Mean Corpuscular Volume 90.3 fL (80.0-100.0); Nucleated Red Blood Cells % 0.0 %
[2025-02-25 11:16] LABS: Alanine Aminotransferase 20 U/L (7-40); Albumin 4.2 g/dL (3.2-4.8); Alkaline Phosphatase 99 U/L (46-116); Anion Gap 9 (5-15); BUN/Creatinine Ratio 26.2 (10.0-20.0); Blood Urea Nitrogen 16 mg/dL (9-23); Calcium 9.3 mg/dL (8.7-10.4); Carbon Dioxide 29 mmol/L (20-31); Glucose 94 mg/dL (74-106); Potassium 4.3 mmol/L (3.5-5.1); Sodium 145 mmol/L (136-145); Total Protein 7.1 g/dL (5.7-8.2); Triglycerides 103 mg/dL (< 150)
[2025-02-25 11:17] LABS: Bilirubin, Total 0.5 mg/dL (0.2-1.0); Cholesterol 153 mg/dL (< 200); HDL Cholesterol 51 mg/dL (40-59)
[2025-02-25 11:18] LABS: Chloride 107 mmol/L (98-107)
[2025-02-25 11:25] LABS: Urine Protein, UAD Negative (Negative)
== END 2025-02-25 17:00 | disposition home or self-care (01) ==
LOC: LAB 09:39
PROVIDERS: ATTEND Internal Medicine
DX: E78.2 Mixed hyperlipidemia (principal); R73.03 Prediabetes; R74.8 Abnormal levels of other serum enzymes; Z13.1 Encounter for screening for diabetes mellitus; Z00.01 Encounter for general adult medical examination with abnormal findings; Z83.3 Family history of diabetes mellitus; Z82.49 Family history of ischemic heart disease and other diseases of the circulatory system
CPT/HCPCS: 36415; 80053; 80061; 81001; 83036; 84439; 84443; 85025